=== PATIENT | male | born 1940 | race Caucasian/White ===

== ENCOUNTER 2021-02-05 18:23 | Emergency (ER) | payer MEDICARE, OTHER ==
[~2021-02-05] VITALS: Ht 185.4 cm; Wt 145.0 kg
[2021-02-05] MEDS ORDERED: KETOROLAC 15 MG/ML VIAL. IVP ONE (19:15)
[2021-02-05] MEDS ORDERED: IOHEXOL 300 MG/ML 75 ML VIAL. IV ONE (19:15)
[2021-02-05] MEDS ORDERED: CONTRAST GIVEN. MC PRN (19:30)
[2021-02-05 19:36] LABS: BILIRUBIN,URINE NEG (NEG); CLARITY,URINE CLOUDY; COLOR,URINE YELLOW; GLUCOSE,URINE NEG (NEG)
[2021-02-05 19:37] LABS: NITRITE,URINE NEG (NEG); UROBILINOGEN,URINE 0.2 mg/dL (0.2 mg/dL)
[2021-02-05 19:39] LABS: BACTERIA,URINE FEW /HPF (0-FEW); WBC,URINE >40 /HPF (0-4)
[2021-02-05 19:46] LABS: BASO % 0 % (0-3); EOS # 0.1 x10^3/uL (0.0-0.7); EOS % 1 % (0-3); HEMATOCRIT 34.9 % (39.0-53.0); HEMOGLOBIN 11.5 g/dL (13.0-17.5); LYMPH # 0.5 x10^3/uL (1.0-4.8); LYMPH % 5 % (24-48); MEAN CORPUSCULAR HEMOGLOBIN 32 pg (25-35); MEAN CORPUSCULAR HGB CONC 33 g/dL (31-37); MEAN CORPUSCULAR VOLUME 98 fL (79-100); MONO % 10 % (0-9); NEUT # 8.5 x10^3uL (1.8-7.7); NEUT % 84 % (31-73); PLATELET COUNT 127 x10^3/uL (140-400); RED BLOOD COUNT 3.55 x10^6/uL (4.30-5.70); RED CELL DISTRIBUTION WIDTH 14.9 % (11.5-14.5); WHITE BLOOD COUNT 10.1 x10^3/uL (4.0-11.0)
[2021-02-05 19:52] LABS: CALCIUM 8.9 mg/dL (8.5-10.1); CREATININE 1.8 mg/dL (0.7-1.3); GFR 36.4; POTASSIUM 4.6 mmol/L (3.5-5.1)
[2021-02-05 19:57] LABS: ALBUMIN 2.7 g/dL (3.4-5.0); ALBUMIN/GLOBULIN RATIO 0.6 (1.0-1.7); TOTAL PROTEIN 7.2 g/dL (6.4-8.2)
--- NOTE | 2021-02-05 20:04 | RAD ---
Exam: CT of abdomen and pelvis with contrast INDICATION: Right lumbar and flank pain TECHNIQUE: Sequential axial images through the abdomen and pelvis obtained following the administrati on of 74 mL of Isovue-370 IV contrast. Sagittal and coronal reformatted images were reconstructed fro m the axial data and reviewed. Exposure: One or more of the following in the visualized dose reduction techniques were utilized for this examination: 1. Automated exposure control 2. Adjustment of the MA and/or KV according to patient size 3. Use of iterative of reconstructive technique Comparisons: None FINDINGS: Heart is mildly enlarged. No pericardial effusion. Strandy opacities at dependent portion lungs likel y representing atelectasis. No pleural effusion. Liver, spleen, pancreas and adrenals are unremarkable. Gallbladder surgically absent. No perinephric inflammation or hydronephrosis. No renal or ureteral calculi are identified. Bladder is partially distended. Prostate is not enlarged. Diverticulosis is noted in the sigmoid colon without evidence of acute diverticulitis. Appendix is no rmal. No free intra-abdominal air or fluid. No obstruction. Abdominal aorta has a normal course and caliber. Aortobiiliac stent is noted. No enlarged intra-abdom inal lymph nodes are identified. No suspicious osseous lesions or acute fractures. IMPRESSION: 1. No acute process identified in the abdomen or pelvis. 2. Diverticulosis without evidence of acute diverticulitis. Electronically signed by: Sydney Hsu MD (02/05/2021 8:02 PM) [facility]
[2021-02-05 20:10] LABS: % BANDS 5 % (0-9); % EOS 3 % (0-5); % LYMPHS 6 % (24-48); % MONOS 5 % (0-10); % OTHERS 2 % (0-0); % SEGS 79 % (35-66); PLT ESTIMATE DECREASED (ADEQUATE)
--- NOTE | 2021-02-05 20:15 | PHYS DOC ---
Past History Past Medical History: Cancer, High Cholesterol, Hypertension, Pancreatitis, Other Additional Past Medical Histor: AORTIC ANEURYSM (AVANI TRUONG APRN) Past Surgical History: Coronary Bypass Surgery, Other Additional Past Surgical Histo: RIGHT EAR AURICULECTOMY (AVANI TRUONG APRN) Alcohol Use: None (AVANI TRUONG APRN) Adult General Chief Complaint Chief Complaint: FLANK PAIN HPI HPI Patient is a 80-year-old male presents emergency department chief complaint right lumbar pain since this past Saturday, patient states he is worried he might have a urinary tract infection. Patient denies a thunderclap onset. Patient reports his pain a 7 out of 10. Patient denies fever or chills, patient denies seeing any blood in his stool or in his urine. Patient denies chest pains, shortness of breath, abdominal pains, patient denies constipation, patient denies pain during bowel movements. Patient denies any other physical complaints or physical concerns. Patient reports a past medical history of cardiac stents in 1996, cardiac ablation and 97 1997, aortic aneurysm repair in 2004, prostate cancer in 2009 had hormone therapy and radiation until 2012, a right auriculectomy in 2016 related to cancer, had a temporal bone resection just after his right ear was removed. Patient has a history of hard of hearing, wears a hearing aid in the left ear. (AVANI TRUONG APRN) Review of Systems Review of Systems Constitutional: Denies fever or chills [] Eyes: Denies change in visual acuity, redness, or eye pain [] HENT: Denies nasal congestion or sore throat [] Respiratory: Denies cough or shortness of breath [] Cardiovascular: No additional information not addressed in HPI [] GI: Denies abdominal pain, nausea, vomiting, bloody stools or diarrhea [] : Denies dysuria or hematuria [] Musculoskeletal: Denies back pain or joint pain [] Integument: Denies rash or skin lesions [] Neurologic: Denies headache, focal weakness or sensory changes [] Endocrine: Denies polyuria or polydipsia [] All other systems were reviewed and found to be within normal limits, except as documented in this note. (AVANI TRUONG APRN) Current Medications Current Medications Patient reports taking lisinopril, metoprolol, simvastatin, aspirin, fish oil, vitamin D, vitamin B12, vitamin E, zinc, magnesium, calcium. Current Medications Medications (Trade) Dose Ordered Sig/Kina Start Time Stop Time Status Last Admin Dose Admin Info (Do NOT chart on this entry -- for MONITORING) 1 each PRN DAILY PRN 02/05/21 19:30 02/07/21 19:29 Iohexol (Omnipaque 300 Mg/ml) 75 ml 1X ONCE 02/05/21 19:15 02/05/21 19:18 DC 02/05/21 19:39 75 ML Ketorolac Tromethamine (Toradol 15mg Vial) 15 mg 1X ONCE 02/05/21 19:15 02/05/21 19:16 DC (AVANI TRUONG APRN) Allergies Allergies Allergies Coded Allergies Type Severity Reaction Last Updated Verified No Known Drug Allergies 02/05/21 No (AVANI TRUONG APRN) Physical Exam Physical Exam Constitutional: Well developed, well nourished, no acute distress, non-toxic appearance. 80-year-old male in no apparent distress. HENT: Normocephalic, atraumatic, bilateral external ears normal, oropharynx moist, no oral exudates, nose normal. Eyes: PERRLA, EOMI, conjunctiva normal, no discharge. Neck: Normal range of motion, no tenderness, supple, no stridor. Cardiovascular:Heart rate regular rhythm, no murmur to auscultation Lungs & Thorax: Bilateral breath sounds clear to auscultation no adventitious l arturo sounds appreciated, the patient is in no respiratory distress. Abdomen: Bowel sounds normal, soft, no tenderness, no masses, no pulsatile masses. Skin: Warm, dry, no erythema, no rash. Back: No CVA tenderness on the left or right, no midline spinal tenderness, patient does have right lumbar pain to palpation. No radiation of pain. Extremities: No tenderness, no cyanosis, no clubbing, ROM intact, no edema. Neurologic: Alert and oriented X 3, normal motor function, normal sensory function, no focal deficits noted. Psychologic: Affect normal, judgement normal, mood normal. (AVANI TRUONG APRN) Current Patient Data Vital Signs Vital Signs Date Time Temp Pulse Resp B/P (MAP) Pulse Ox O2 Delivery O2 Flow Rate FiO2 02/05/21 18:50 98.5 80 18 141/59 (86) 95 Room Air Lab Results Laboratory Tests Test 02/05/21 19:07 02/05/21 19:26 Urine Collection Type Unknown Urine Color Yellow Urine Clarity Cloudy Urine pH 6.0 Urine Specific [place] 1.020 Urine Protein 100 mg/dl (NEG-TRACE) Urine Glucose (UA) Neg mg/dL (NEG) Urine Ketones (Stick) Neg mg/dL (NEG) Urine Blood Large (NEG) Urine Nitrite Neg (NEG) Urine Bilirubin Neg (NEG) Urine Urobilinogen Dipstick 0.2 mg/dL (0.2 mg/dL) Urine Leukocyte Esterase Small (NEG) Urine RBC 6-10 /HPF (0-2) Urine WBC >40 /HPF (0-4) Urine Bacteria Few /HPF (0-FEW) White Blood Count 10.1 x10^3/uL (4.0-11.0) Red Blood Count 3.55 x10^6/uL (4.30-5.70) L Hemoglobin 11.5 g/dL (13.0-17.5) L Hematocrit 34.9 % (39.0-53.0) L Mean Corpuscular Volume 98 fL (79-100) Mean Corpuscular Hemoglobin 32 pg (25-35) Mean Corpuscular Hemoglobin Concent 33 g/dL (31-37) Red Cell Distribution Width 14.9 % (11.5-14.5) H Platelet Count 127 x10^3/uL (140-400) L Neutrophils (%) (Auto) 84 % (31-73) H Lymphocytes (%) (Auto) 5 % (24-48) L Monocytes (%) (Auto) 10 % (0-9) H Eosinophils (%) (Auto) 1 % (0-3) Basophils (%) (Auto) 0 % (0-3) Neutrophils # (Auto) 8.5 x10^3uL (1.8-7.7) H Lymphocytes # (Auto) 0.5 x10^3/uL (1.0-4.8) L Monocytes # (Auto) 1.0 x10^3/uL (0.0-1.1) Eosinophils # (Auto) 0.1 x10^3/uL (0.0-0.7) Basophils # (Auto) 0.0 x10^3/uL (0.0-0.2) Segmented Neutrophils % 79 % (35-66) H Band Neutrophils % 5 % (0-9) Lymphocytes % 6 % (24-48) L Monocytes % 5 % (0-10) Eosinophils % 3 % (0-5) Other Cells % 2 % (0-0) H Platelet Estimate Decreased (ADEQUATE) Sodium Level 136 mmol/L (136-145) Potassium Level 4.6 mmol/L (3.5-5.1) Chloride Level 104 mmol/L (98-107) Carbon Dioxide Level 19 mmol/L (21-32) L Anion Gap 13 (6-14) Blood Urea Nitrogen 32 mg/dL (8-26) H Creatinine 1.8 mg/dL (0.7-1.3) H Estimated GFR (Cockcroft-Gault) 36.4 BUN/Creatinine Ratio 18 (6-20) Glucose Level 98 mg/dL (70-99) Calcium Level 8.9 mg/dL (8.5-10.1) Total Bilirubin 1.0 mg/dL (0.2-1.0) Aspartate Amino Transferase (AST) 21 U/L (15-37) Alanine Aminotransferase (ALT) 21 U/L (16-63) Alkaline Phosphatase 81 U/L (46-116) Total Protein 7.2 g/dL (6.4-8.2) Albumin 2.7 g/dL (3.4-5.0) L Albumin/Globulin Ratio 0.6 (1.0-1.7) L (AVANI TRUONG APRN) EKG EKG [] (AVANI TRUONG APRN) Radiology/Procedures Radiology/Procedures [] PATIENT: OLIVER YANG ACCOUNT: [id number] : 1940 LOCATION: ER AGE: 80 SEX: M EXAM STATUS: REG ER ORD. PHYSICIAN: AVANI TRUONG APRN REASON: RT LUMBAR and flank PAIN, HX AAA REPAIR Omni 300 75cc PROCEDURE: CT ABD PELV W/ IV CONTRST ONLY Exam: CT of abdomen and pelvis with contrast INDICATION: Right lumbar and flank pain TECHNIQUE: Sequential axial images through the abdomen and pelvis obtained following the administration of 74 mL of Isovue-370 IV contrast. Sagittal and coronal reformatted images were reconstructed from the axial data and reviewed. Exposure: One or more of the following in the visualized dose reduction techniques were utilized for this examination: 1. Automated exposure control 2. Adjustment of the MA and/or KV according to patient size 3. Use of iterative of reconstructive technique Comparisons: None FINDINGS: Heart is mildly enlarged. No pericardial effusion. Strandy opacities at dependent portion lungs likely representing atelectasis. No pleural effusion. Liver, spleen, pancreas and adrenals are unremarkable. Gallbladder surgically absent. No perinephric inflammation or hydronephrosis. No renal or ureteral calculi are identified. Bladder is partially distended. Prostate is not enlarged. Diverticulosis is noted in the sigmoid colon without evidence of acute diverticulitis. Appendix is normal. No free intra-abdominal air or fluid. No obstruction. Abdominal aorta has a normal course and caliber. Aortobiiliac stent is noted. No enlarged intra-abdominal lymph nodes are identified. No suspicious osseous lesions or acute fractures. IMPRESSION: 1. No acute process identified in the abdomen or pelvis. 2. Diverticulosis without evidence of acute diverticulitis. Electronically signed by: Sydney Salmeron MD (02/05/2021 8:02 PM) [facility] DICTATED AND SIGNED BY: SYDNEY SALMERON MD DATE: 02/05/211956 CC: AVANI TRUONG APRN; MIKAELA STOVALL MD ~MTH0 0 (AVANI TRUONG APRN) Heart Score C/O Chest Pain: No Risk Factors: Risk Factors: DM, Current or recent (<one month) smoker, HTN, HLP, family history of CAD, obesity. Risk Scores: Risk Factors: DM, Current or recent (<one month) smoker, HTN, HLP, family history of CAD, obesity. (AVNAI TRUONG APRN) Course & Med Decision Making Course & Med Decision Making Pertinent Labs and Imaging studies reviewed. (See chart for details) 80-year-old male, vital signs reviewed, presents emergency department complaining of right low back pain since Saturday. Patient reports that he feels he might be a urinary tract infection, patient denies having urinary tract infections in the past. Patient denies a thunderclap onset, unlikely a kidney stone, patient does have a history of AAA repair 6 years ago, and abdominal focus scan was performed to rule out acute AAA repair rupture, no abnormalities were noted by Dr. Thompson who performed abdominal focus scan. Will order urinalysis assay, IV saline lock, CBC, CMP, CT abdomen pelvis with IV contrast. The patient's creatinine was 1.8, however related to patient's history of AAA, the benefits of CT abdomen pelvis with IV contrast outweighs the risk of a undiagnosed abdominal process with CT abdomen pelvis without IV contrast. CT abdomen pelvis with IV contrast not concerning for acute abdominal process, the patient's creatinine slightly elevated at 1.8, discussed with patient creatinine elevation, offered admission, patient states that he has never been drinking as enough water and is always being encouraged by his healthcare providers to drink more water, patient states she would rather go home and drink water and then have this reevaluated at his primary care physician's office, patient's urine was infected, positive leukocyte esterase, hematuria will start on ciprofloxacin 500 mg twice daily x7 days, patient did state that IV pain medication helps some however he would like to have Vicodin for this pain. Will give 1 [place] 5/325 mg tablet here in the emergency department, discussed with patient strict follow-up with primary care related to abnormal labs and reevaluation of urinary tract infection. Patient gave verbal understanding of discharge home instructions, follow-up with primary care this week, return to ER precautions and concerns, patient states he is ready to go home, patient was discharged home without incident. (AVANI TRUONG APRN) Course & Med Decision Making Did not see or evaluate patient. Agree with ACCORDION REPAIRER's work-up and disposition per note. (VIDYA THOMPSON MD) Dragon Disclaimer Dragon Disclaimer This electronic medical record was generated, in whole or in part, using a voice recognition dictation system. (AVANI TRUONG APRN) Departure Departure: Impression: Primary Impression: Urinary tract infection Additional Impression: Elevated serum creatinine Disposition: HOME / SELF CARE / HOMELESS Condition: GOOD Referrals: MIKAELA STOVALL MD (PCP) Patient Instructions: Urinary Tract Infection Additional Instructions: You were seen in the emergency department today for right low back pain, your urine showed that you have a urinary tract infection. You had an abnormal creatinine lab, this level was 1.8, please increase your fluid intake as we discussed, please follow-up with your primary care Dr. Santos and have this level redrawn and to also have your urinary tract infection symptoms reevaluated. Please take the prescribed medications as directed. Return to the emergency department for worsening symptoms or other concerns. Scripts Hydrocodone Bit/Acetaminophen (HYDROCODONE-APAP 5-325 ) 1 Each Tablet 1 TAB PO PRN Q6HRS PRN for PAIN, #10 TAB 0 Refills Prov: AVANI TRUONG APRN 02/05/21 Ciprofloxacin Hcl (CIPRO) 500 Mg Tablet 1 TAB PO BID for UTI for 7 Days, #14 TAB 0 Refills Prov: AVANI TRUONG APRN 02/05/21 Problem Qualifiers Primary Impression: Urinary tract infection Urinary tract infection type: site unspecified Hematuria presence: with hematuria Qualified Codes: N39.0 - Urinary tract infection, site not specified; R31.9 - Hematuria, unspecified AVANI TRUONG APRN Feb 05, 2021 20:15 VIDYA THOMPSON MD Feb 05, 2021 23:54
[2021-02-05 20:30] VITALS: BP 134/71
[2021-02-05] MEDS ORDERED: CIPROFLOXACIN HCL 500 MG TABLET PO ONE (20:30)
[2021-02-05] MEDS ORDERED: HYDROcodone/APAP 5/325MG 1 TAB TABLET PO ONE (20:30)
[2021-02-05] MEDS ORDERED: CIPR500T94 PO (20:33)
[2021-02-05] MEDS ORDERED: HYDR-2155 PO (20:33)
== END 2021-02-05 20:53 | disposition home or self-care (01) ==
LOC: ER 18:23
DX: N39.0 Urinary tract infection, site not specified (principal); R94.4 Abnormal results of kidney function studies; M54.5 Low back pain; E78.5 Hyperlipidemia, unspecified; I10 Essential (primary) hypertension
CPT/HCPCS: 36415; 74177; 80053; 81001; 85007; 85025; 87086; 99285; Q9967; 87077